=== PATIENT | female | born 1955 | race Caucasian/White ===

== ENCOUNTER → 2020-09-03 10:45 | Outpatient (CLI) | payer MEDICARE, OTHER, SELFPAY ==
--- NOTE | ~2020-09-03 | MR_ITS ---
EXAMINATION: MR shoulder LT wo/w con DATE: 09/03/2020 11:45 INDICATION: Left shoulder pain TECHNIQUE: Magnetic resonance imaging (MRI) of the left shoulder was performed without and with 14 mL Multihance intravenous contrast. Sequences included axial, sagittal and coronal T1-weighted FS FSE a nd T2-weighted FS FSE, axial T1-weighted FS FSE and post contrast axial, sagittal and coronal T1-weig hted FS FSE. COMPARISON: None. FINDINGS: Coracoacromial arch: The acromion undersurface is curved in morphology (type II) with anterior downsloping. The coracoacro mial ligament is normal. Acromioclavicular joint is normal. Rotator cuff: Mild supraspinatus tendinopathy and mild to moderate tendinopathy without discrete tear at the conjoi evelin portion of the supraspinatus and infraspinatus tendons. The more posterior infraspinatus tendon a s well as the teres minor and subscapularis tendons are normal. Normal rotator cuff muscle bulk and s ignal. Biceps tendon, glenoid labrum and glenohumeral cartilage: Mild tendinopathy and longitudinal split tear of the long head biceps tendon with tear extending into the superior biceps labral complex at the 12:00 position. The remainder of the glenoid labrum is nor mal. Glenohumeral cartilage is normal. Fluid: Small amount of fluid in the long head biceps tendon sheath which is disproportionate to the physiolo gic amount of fluid in the glenohumeral joint space consistent with mild bicipital tenosynovitis. No loose osteochondral bodies. No abnormal increased fluid signal in the subacromial/subdeltoid bursa to suggest bursitis. Thin rim of peripheral enhancement at a 1.3 x 0.5 x 0.2 cm ganglion cyst along the cephalad myotendinous junction of the infraspinatus tendon. Bones/other: Normal marrow signal with no edema, fracture or abnormal marrow replacing process. Thickened intermed iate signal intensity enhancing soft tissue representing normal T1 hyperintense fat at the rotator cu ff interval. This can be seen in the setting of adhesive capsulitis which is a clinical diagnosis. IMPRESSION: 1. Mild bicipital tenosynovitis with mild tendinopathy and longitudinal split tear which extends medi ally to involve the biceps labral complex at the 12:00 position of the glenoid. 2. Mild supraspinatus tendinopathy and mild to moderate tendinopathy conjoined portion of the suprasp inatus and infraspinatus tendons without discrete rotator cuff tendon tear. 3. Increased enhancing soft tissue at the rotator cuff interval which can be seen with adhesive capsu litis which is a clinical diagnosis. Reviewed, dictated and finalized at location B. IMPRESSION: 1. Mild bicipital tenosynovitis with mild tendinopathy and longitudinal split t ear which extends medially to involve the biceps labral complex at the 12:00 po sition of the glenoid. 2. Mild supraspinatus tendinopathy and mild to moderate tendinopathy conjoined portion of the supraspinatus and infraspinatus tendons without discrete rotator cuff tendon tear. 3. Increased enhancing soft tissue at the rotator cuff interval which can be se en with adhesive capsulitis which is a clinical diagnosis.
[2020-09-03 11:13] LABS: Estimated Glomerular Filt Rate > 60
== END ==
PROVIDERS: Visit Provider Internal Medicine Endocrinology, Diabetes & Metabolism
DX: M25.512 Pain in left shoulder (principal); M65.812 Other synovitis and tenosynovitis, left shoulder; S43.432A Superior glenoid labrum lesion of left shoulder, initial encounter; M75.102 Unspecified rotator cuff tear or rupture of left shoulder, not specified as traumatic
CPT/HCPCS: 73223; A9577

== ENCOUNTER → 2020-11-05 12:23 | Outpatient (CLI) | payer MEDICARE, OTHER, SELFPAY ==
--- NOTE | ~2020-11-05 | DEXA_ITS ---
Bone Density Report Name: Debra Cunningham Age: 65 Sex: Female Ethnicity: White Date of : 1955 Indication: postmenopausal osteoporosis; monitoring treatment; Referring Provider: Freedom, Moon Bennett Study: Bone densitometry was performed. Exam Date: November 05, 2020 Accession number: [id number] Bone Density: Region BMD T-score Z-score Classification AP Spine (L1-L4) 0.810 -2.2 -0.2 Osteopenia Femoral Neck (Left) 0.542 -2.8 -1.1 Osteoporosis Total Hip (Left) 0.493 -3.7 -2.3 Osteoporosis Femoral Neck (Right) 0.605 -2.2 -0.5 Osteopenia Total Hip (Right) 0.571 -3.0 -1.7 Osteoporosis Total Hip Mean 0.532 -3.4 -2.0 Osteoporosis World Health Organization criteria for BMD impression classify patients as: Normal (T-score at or above -1.0), Osteopenia (T-score between -1.0 and -2.5), or Osteoporosis (T-score at or below -2.5). 10-year Fracture Risk: FRAX not reported because: Some T-score for Spine Total or Hip Total or Femoral Neck at or below -2.5 Treated for osteoporosis Previous Exams: Region Exam Age BMD T-score BMD Change BMD Change Date g/cm2 vs Baseline vs Previous AP Spine(L1-L4) 11/05/2020 65 0.810 -2.2 -0.240* 0.009 06/16/2019 64 0.801 -2.2 -0.250* -0.023* 06/17/2018 63 0.824 -2.0 -0.226* -0.039* 05/06/2010 55 0.863 -1.7 -0.187* -0.026* 04/26/2009 54 0.889 -1.4 -0.162* -0.082* 12/25/2007 52 0.971 -0.7 -0.079* -0.079* 12/19/2004 49 1.051 0.0 Total Hip(Left) 11/05/2020 65 0.493 -3.7 -0.586* -0.034* 06/16/2019 64 0.527 -3.4 -0.552* -0.071* 06/17/2018 63 0.598 -2.8 -0.481* 0.008 05/06/2010 55 0.590 -2.9 -0.489* -0.112* 04/26/2009 54 0.703 -2.0 -0.377* -0.066* 12/25/2007 52 0.769 -1.4 -0.310* -0.310* 12/19/2004 49 1.079 1.1 Total Hip(Right) 11/05/2020 65 0.571 -3.0 -0.569* -0.002 06/16/2019 64 0.573 -3.0 -0.567* -0.047* 06/17/2018 63 0.620 -2.6 -0.520* -0.036* 05/06/2010 55 0.656 -2.3 -0.484* -0.102* 04/26/2009 54 0.758 -1.5 -0.382* -0.113* 12/25/2007 52 0.871 -0.6 -0.269* -0.269* 12/19/2004 49 1.140 1.6 *Denotes significance at 95% confidence level, LSC for AP Spine = 0.022 g/cm2, LSC for Total Hip = 0.027 g/cm2 Clinical Information Provided by Patient:
== END ==
PROVIDERS: Visit Provider Internal Medicine Endocrinology, Diabetes & Metabolism
DX: M81.0 Age-related osteoporosis without current pathological fracture (principal); M85.89 Other specified disorders of bone density and structure, multiple sites
CPT/HCPCS: 77080

== ENCOUNTER → 2023-01-16 12:17 | Outpatient (CLI) | payer MEDICARE, OTHER, SELFPAY ==
--- NOTE | ~2023-01-16 | DEXA_ITS ---
Bone Density Report Name: AMANDA GODDARD Age: 68 Sex: Female Ethnicity: White Date of : 1955 Indication: postmenopausal osteoporosis; monitoring treatment; Referring Provider: Freedom, Moon Bennett Study: Bone densitometry was performed. Exam Date: January 16, 2023 Accession number: [id number] Bone Density: Region BMD T-score Z-score Classification AP Spine (L1-L4) 0.856 -1.7 0.4 Osteopenia Femoral Neck (Left) 0.595 -2.3 -0.5 Osteopenia Total Hip (Left) 0.561 -3.1 -1.6 Osteoporosis Femoral Neck (Right) 0.604 -2.2 -0.4 Osteopenia Total Hip (Right) 0.614 -2.7 -1.2 Osteoporosis Total Hip Mean 0.588 -2.9 -1.4 Osteoporosis World Health Organization criteria for BMD impression classify patients as: Normal (T-score at or above -1.0), Osteopenia (T-score between -1.0 and -2.5), or Osteoporosis (T-score at or below -2.5). 10-year Fracture Risk: FRAX not reported because: Some T-score for Spine Total or Hip Total or Femoral Neck at or below -2.5 Treated for osteoporosis Previous Exams: Region Exam Age BMD T-score BMD Change BMD Change Date g/cm2 vs Baseline vs Previous AP Spine(L1-L4) 01/16/2023 68 0.856 -1.7 -0.195* 0.045* 11/05/2020 65 0.810 -2.2 -0.240* 0.009 06/16/2019 64 0.801 -2.2 -0.250* -0.023* 06/17/2018 63 0.824 -2.0 -0.226* -0.039* 05/06/2010 55 0.863 -1.7 -0.187* -0.026* 04/26/2009 54 0.889 -1.4 -0.162* -0.082* 12/25/2007 52 0.971 -0.7 -0.079* -0.079* 12/19/2004 49 1.051 0.0 Total Hip(Left) 01/16/2023 68 0.561 -3.1 -0.518* 0.068* 11/05/2020 65 0.493 -3.7 -0.586* -0.034* 06/16/2019 64 0.527 -3.4 -0.552* -0.071* 06/17/2018 63 0.598 -2.8 -0.481* 0.008 05/06/2010 55 0.590 -2.9 -0.489* -0.112* 04/26/2009 54 0.703 -2.0 -0.377* -0.066* 12/25/2007 52 0.769 -1.4 -0.310* -0.310* 12/19/2004 49 1.079 1.1 Total Hip(Right) 01/16/2023 68 0.614 -2.7 -0.526* 0.043* 11/05/2020 65 0.571 -3.0 -0.569* -0.002 06/16/2019 64 0.573 -3.0 -0.567* -0.047* 06/17/2018 63 0.620 -2.6 -0.520* -0.036* 05/06/2010 55 0.656 -2.3 -0.484* -0.102* 04/26/2009 54 0.758 -1.5 -0.382* -0.113* 12/25/2007 52 0.871 -0.6 -0.269* -0.269* 12/19/2004 49 1.140 1.6
== END ==
PROVIDERS: PCP Physician Assistant; Visit Provider Internal Medicine Endocrinology, Diabetes & Metabolism
DX: M81.0 Age-related osteoporosis without current pathological fracture (principal); M85.89 Other specified disorders of bone density and structure, multiple sites
CPT/HCPCS: 77080

== ENCOUNTER 2024-08-12 13:49 | Outpatient (CLI) | payer MEDICARE, OTHER, SELFPAY ==
--- NOTE | ~2024-08-12 | CT_ITS ---
CT scan of the Neck Technique: 2.5 mm axial scans were obtained through the neck after intravenous administration of 75 c c Omnipaque 350. Coronal and sagittal reconstructions of the neck were obtained. Dose reduction techn ique was used on this scan by utilizing automated exposure control and iterative reconstruction techn ique. The dose-length product (DLP) was 358.76 mGy-cm. Clinical History: Hyperparathyroidism Findings: There is no evidence of any significant cervical lymphadenopathy. Several small, nonenlarged jugulo- digastric and posterior cervical lymph nodes are noted bilaterally. Parapharyngeal spaces appear norm al bilaterally. The parotid and submandibular glands appear normal. The pharyngeal mucosal spaces appear normal. No soft tissue masses are seen in the neck. There is cary cified plaque in the bilateral carotid artery bifurcation regions, with mild (less than 50%) stenosis at the right carotid bifurcation. The thyroid gland appears normal. Images of the lung apices reveal no abnormalities. Impression: No abnormal mass lesion evident. If there is concern for parathyroid adenoma, then nuclear medicine p arathyroid scan would be recommended. Reviewed, dictated and finalized at location M. Impression: No abnormal mass lesion evident. If there is concern for parathyroid adenoma, t hen nuclear medicine parathyroid scan would be recommended.
--- NOTE | ~2024-08-12 | US_ITS ---
EXAMINATION: US soft tissue head and neck DATE: 08/12/2024 14:35 INDICATION: Hyperparathyroidism TECHNIQUE: Multiple ultrasound images of the thyroid were obtained. COMPARISON: 11/19/[address] dated 08/12/2024 FINDINGS: The right thyroid lobe measures 4.4 x 1.0 x 1.2 cm. The left thyroid lobe measures 3.4 x 0.8 x 0.9 c m. No interval change in 3 solid hypoechoic nodules which are wider than tall with smooth to ill-def ined margins measuring 5 mm, 4 mm and 2 mm in maximal diameters. (TI-RADS 4, moderately suspicious , FNA if >=1.5 cm, annual followup is >=1 cm) . There is normal echotexture, echogenicity and vascular flow throughout the thyroid gland. No other masses, fluid collections or pathologically enlarged lym phadenopathy at the thyroid or visualized surrounding soft tissues. IMPRESSION: 1. A few subcentimeter TI-RADS 4 right thyroid nodules which remain below threshold criteria for eith er biopsy or follow-up. Reviewed, dictated and finalized at location A. IMPRESSION: 1. A few subcentimeter TI-RADS 4 right thyroid nodules which remain below thres hold criteria for either biopsy or follow-up.
[2024-08-12 14:14] LABS: Estimated Glomerular Filt Rate > 60
== END 2024-08-12 13:50 | disposition home or self-care (01) ==
DX: E04.2 Nontoxic multinodular goiter (principal); E21.3 Hyperparathyroidism, unspecified
CPT/HCPCS: 70491; 76536; Q9967

== ENCOUNTER 2024-10-07 12:51 | Outpatient (CLI) | payer MEDICARE, OTHER, SELFPAY ==
--- NOTE | ~2024-10-07 | CT_ITS ---
Non-contrast CT scan of the Abdomen Clinical indication: Disorder of adrenal gland Technique: 2.5 mm axial scans were obtained through the abdomen without intravenous or oral contrast . Dose reduction technique was used on this scan by utilizing automated exposure control and iterativ e reconstruction technique. The dose-length product (DLP) was 217.52 mGy-cm. Findings: Images through the lung bases reveal no abnormalities. The liver, spleen, pancreas, left kidney, and adrenals appear normal. Cholecystectomy clips are prese nt. 2 mm nonobstructing right renal stone present. There are atherosclerotic calcifications of the ao rta. . Probable prior bariatric surgery. Visualized bowel loops are otherwise unremarkable. No ascites. Left unilateral L5 pars interarticularis defect noted. Impression: Unremarkable adrenal glands. Chronic findings, as above. Reviewed, dictated and finalized at location M. Impression: Unremarkable adrenal glands. Chronic findings, as above.
== END 2024-10-07 12:52 | disposition home or self-care (01) ==
LOC: MICIMG 12:52
PROVIDERS: PCP Internal Medicine Endocrinology, Diabetes & Metabolism; Visit Provider Internal Medicine Endocrinology, Diabetes & Metabolism
DX: N20.0 Calculus of kidney (principal); I70.0 Atherosclerosis of aorta; M43.06 Spondylolysis, lumbar region; Z90.49 Acquired absence of other specified parts of digestive tract; E27.9 Disorder of adrenal gland, unspecified
CPT/HCPCS: 74150